=== PATIENT | male | born 1970 | race Two or more races ===

== ENCOUNTER 2019-02-21 04:43 | Emergency (ER) | payer SELFPAY ==
[2019-02-21] MEDS: IBUPROFEN 800 MG TAB PO (05:08)
== END 2019-02-21 05:57 | disposition home or self-care (01) ==
LOC: E/R 04:43
DX: S20.212A Contusion of left front wall of thorax, initial encounter (principal); V49.50XA Passenger injured in collision with unspecified motor vehicles in traffic accident, initial encounter
CPT/HCPCS: 71045; 99283-25